=== PATIENT | male | born 1940 | race Caucasian/White ===

== ENCOUNTER → 2016-07-16 | Outpatient (CLI) | payer OTHER ==
[~2016-07-16] MED LIST: LIDOCAINE 1%/EPI 1:100,000 20 ML VIAL. ONE
== END | disposition home or self-care (01) ==
LOC: PCVCINTER 11:42
PROVIDERS: ATTEND Internal Medicine
DX: I95.1 Orthostatic hypotension (principal); I71.9 Aortic aneurysm of unspecified site, without rupture; Z86.73 Personal history of transient ischemic attack (TIA), and cerebral infarction without residual deficits
CPT/HCPCS: 33282; C1764; J3490